=== PATIENT | female | born 1970 | race American Indian/Alaskan Native ===

== ENCOUNTER 2017-07-22 11:21 | Outpatient (CLI) | payer BC ==
--- NOTE | 2017-07-22 14:06 | Mammography Report ---
BILATERAL MAMMOGRAM with CAD: HISTORY: Cancer screening. Comparison study is dated July 18, 2016. FINDINGS: The breast tissue is heterogeneously dense, which could obscure detection of small masses (approximately 50%-75% glandular). No mass, distortion, suspicious calcification, or skin change is seen. IMPRESSION: Negative mammogram. There is no mammographic evidence of malignancy. RECOMMENDATION: Follow-up per ACS guidelines. BI-RADS CATEGORY: 1 = Negative ACR BI-RADS MAMMOGRAPHIC CODES: 0 = Needs additional imaging evaluation; 1 = Negative; 2 = Benign; 3 = Probably benign; 4 = Suspicious; 5 = Malignant; 6 = Known biopsy-proven malignancy COMMENT: 1. Dense breast tissue, i.e., adenosis, fibrocystic changes, etc., may obscure an underlying neoplasm. 2. Approximately 10% of cancers are not detected with mammography. 3. A negative mammography report should not delay biopsy if a clinically suspicious mass is present. COMMENT: Patient follow-up letters are generated in [employer].
== END 2017-07-22 11:22 | disposition home or self-care (01) ==
LOC: SPVWC 11:21
PROVIDERS: ATTEND Obstetrics & Gynecology
DX: Z12.31 Encounter for screening mammogram for malignant neoplasm of breast (principal)
CPT/HCPCS: 77067; G0202

== ENCOUNTER 2019-09-12 09:18 | Outpatient (CLI) | payer OTHER ==
--- NOTE | 2019-09-12 14:53 | Mammography Report ---
DIGITAL SCREENING MAMMOGRAM WITH CAD, 09/12/2019 INDICATION: Routine screening mammography. TECHNIQUE: Digital bilateral 2D mammography was obtained in the craniocaudal and mediolateral obliq ue projections. This examination was interpreted with the benefit of Computer-Aided Detection analysi s. COMPARISON: 08/02/2018 and 07/22/2017 FINDINGS: Breast Density: The breasts are heterogeneously dense, which may obscure small masses. A right asymmetry on the MLO view requires additional imaging. No architectural distortion or suspici ous calcifications of the right breast. There is no evidence of dominant mass, suspicious calcificati ons or architectural distortion in the left breast. IMPRESSION: Right asymmetry requiring additional imaging. Recommend recall for right lateral and spot compression MLO views and right breast ultrasound if needed. Follow up recommendation: Special View: Spot Category 0: Incomplete. Needs additional imaging evaluation and/or prior mammograms for comparison. A "normal" or negative report should not discourage follow up or biopsy of a clinically significant f inding. A written summary of these findings will be mailed to the patient. The patient will be entered into a mammography reporting system which will generate a reminder letter for the patient's next appointmen t at the appropriate interval. The [employer] recommends yearly mammograms starting at age 40 and continuing as l isabella as a woman is in good health. Breast MRI is recommended for women with an approximate 20-25% or greater lifetime risk of breast cancer, including women with a strong family history of breast or ova hoda cancer or who have been treated for Hodgkin's disease. Signer Name: Brody Yu MD Signed: 09/12/2019 2:49 PM Workstation Name: [id number]
== END 2019-09-12 09:19 | disposition home or self-care (01) ==
LOC: SPVWC 09:18
PROVIDERS: ATTEND Obstetrics & Gynecology
DX: Z12.31 Encounter for screening mammogram for malignant neoplasm of breast (principal)
CPT/HCPCS: 77067

== ENCOUNTER 2021-04-25 13:23 | Outpatient (CLI) | payer OTHER ==
--- NOTE | 2021-04-25 15:16 | Ultrasound Report ---
BILATERAL DIGITAL DIAGNOSTIC MAMMOGRAM WITH CAD CONVENTIONAL, 04/25/2021 LEFT LIMITED BREAST ULTRASOUND CLINICAL INFORMATION / INDICATION: Recurrent left breast abscess. TECHNIQUE: Digital bilateral mammographic imaging was performed. Limited ultrasound was performed. Th is examination was interpreted with the benefit of Computer-Aided Detection (CAD) analysis. COMPARISON: Bilateral mammography 08/02/18 through left breast diagnostic mammogram and ultrasound . FINDINGS: Breast Density: The breasts are heterogeneously dense, which may obscure small masses. MAMMOGRAPHIC FINDINGS: No dominant mass, suspicious calcifications, or architectural distortion in th e right breast. There are bilateral reduction changes. Skin thickening in the left periareolar region is again identified and has increased. No discrete mass or abnormal calcifications are noted. ULTRASOUND FINDINGS: Targeted ultrasound evaluation was performed of the area of interest. Generali zed edematous skin thickening in the periareolar region is present. I see no evidence of a mass, post erior shadowing, distortion or ductal ectasia. IMPRESSION: Nonspecific skin thickening in the left periareolar region without evidence of mass or ab scess. The findings may just be related to the patient's history of recurrent mastitis. Clinical lacy elation is recommended. Short-term radiographic or sonographic follow-up after appropriate antibiotic therapy may be helpful in documenting resolution. Follow up recommendation: Clinical exam BI-RADS Category 3: Probably Benign. Followup in 3 months. A "normal" or negative report should not discourage follow up or biopsy of a clinically significant f inding. A written summary of these findings will be mailed to the patient. The patient will be entered into a mammography reporting system which will generate a reminder letter for the patient's next appointmen t at the appropriate interval. According to the [employer], yearly mammograms are recommended starting at age 40 and continuing as long as a woman is in good health. Breast MRI is recommended for women with an donna roximately 20-25% or greater lifetime risk of breast cancer, including women with a strong family his tory of breast or ovarian cancer and women who have been treated for Hodgkin's disease. Signer Name: Guero Acuña MD Signed: 04/25/2021 3:11 PM Workstation Name: [id number]
== END 2021-04-25 13:24 | disposition home or self-care (01) ==
LOC: SPVWC 13:23
PROVIDERS: ATTEND Internal Medicine
DX: N63.25 Unspecified lump in the left breast, overlapping quadrants (principal)
CPT/HCPCS: 77066